=== PATIENT | male | born 1985 | race Native Hawaiian/Other Pacific Islander ===

== ENCOUNTER 2021-09-24 17:35 | Emergency (ER) | payer BC ==
[~2021-09-24] VITALS: Ht 177.8 cm; Wt 108.9 kg
[~2021-09-24 17:35] MED LIST: BACTRIM1 TAB PO; DOXYCYCL HYC100 M1 PO; TRAM50TA PO
[2021-09-24 21:25] VITALS: BP 138/81; TEMP 98.7
== END 2021-09-24 21:30 | disposition home or self-care (01) ==
LOC: ED 17:35
PROC: 0H98XZZ Drainage of Buttock Skin, External Approach (ICD-10-PCS; principal; 2021-09-24)
DX: L02.31 Cutaneous abscess of buttock (principal)
CPT/HCPCS: 87070; 87205; 99283

== ENCOUNTER 2021-09-25 18:07 | Emergency (ER) | payer BC ==
[~2021-09-25] VITALS: Ht 177.8 cm; Wt 108.9 kg
[2021-09-25 18:51] VITALS: BP 131/75; TEMP 97.5
== END 2021-09-25 18:50 | disposition home or self-care (01) ==
LOC: ED 18:07
DX: Z51.89 Encounter for other specified aftercare (principal)